=== PATIENT | male | born 1935 | race Caucasian/White ===

== ENCOUNTER 2016-12-03 16:38 | Emergency (ER) | payer BC, MEDICARE ==
[~2016-12-03] VITALS: Ht 172.7 cm; Wt 91.0 kg
[2016-12-03 16:40] VITALS: BP 169/81; PULSE 67; RESP 18; TEMP 97.8; O2SAT 96
[2016-12-03] MEDS ORDERED: SODIUM CHLORIDE 0.9% FLUSH 10 ML FLUSH IVF PRN (17:15)
[2016-12-03 17:19] VITALS: O2SAT 96
[2016-12-03 17:25] VITALS: BP 153/75; PULSE 68; RESP 20; O2SAT 97
[2016-12-03 17:35] LABS: AUTOMATED NEUTROPHIL # 4.7 TH/MM3 (1.8-7.7); BASOPHIL % 0.6 % (0.0-2.0); EOSINOPHIL # 0.5 TH/MM3 (0-0.4); EOSINOPHIL % 6.4 % (0.0-4.0); HEMATOCRIT 45.5 % (39.0-51.0); HEMO FLAGS DIFF FINAL; LYMPH % 18.6 % (9.0-44.0); LYMPHOCYTE # 1.3 TH/MM3 (1.0-4.8); MEAN CELL VOLUME 95.6 FL (80.0-100.0); MEAN CORPUSCULAR HEMOGLOBIN 31.7 PG (27.0-34.0); MEAN CORPUSCULAR HGB CONC 33.1 % (32.0-36.0); MONO % 8.1 % (0.0-8.0); NEUT % 66.3 % (16.0-70.0); PLATELET COUNT 213 TH/MM3 (150-450); RED BLOOD COUNT 4.76 MIL/MM3 (4.50-5.90); RED CELL DISTRIBUTION WIDTH 12.9 % (11.6-17.2); WHITE BLOOD COUNT 7.1 TH/MM3 (4.0-11.0)
[2016-12-03 17:36] LABS: GLUCOSE,URINE NEG (NEG); KETONE, URINE NEG (NEG); NITRITE,URINE NEG (NEG); PH, URINE 5.5 (5.0-8.5)
[2016-12-03 17:37] LABS: BLOOD, URINE TRACE (NEG); METHOD OF COLLECTION CLEAN CATCH; URINE COLOR YELLOW (YELLW/STRAW)
[2016-12-03 17:40] LABS: COMMENT (UR) CULT NOT INDICATED; CULTURE IF INDICATED CULT NOT INDICATED; RBC, URINE 0-3 /hpf (0-3); SQUAMOUS EPITHELIAL CELL URINE 0-5 /hpf (0-5); WBC, URINE 0-2 /hpf (0-5)
[2016-12-03 17:43] LABS: CHLORIDE 106 MEQ/L (98-107); POTASSIUM 3.5 MEQ/L (3.5-5.1); SODIUM (NA) 141 MEQ/L (136-145)
[2016-12-03 17:47] LABS: ANION GAP 8 MEQ/L (5-15); BICARBONATE 26.7 MEQ/L (21.0-32.0); BLOOD UREA NITROGEN 14 MG/DL (7-18); MAGNESIUM 2.4 MG/DL (1.5-2.5)
[2016-12-03 17:48] LABS: APTT (PATIENT) 25.9 SEC (24.3-30.1)
[2016-12-03 17:50] LABS: ALT (GPT) 27 U/L (12-78); AST (GOT) 13 U/L (15-37); GLOMERULAR FILTRATION RATE 80 ML/MIN (>89)
[2016-12-03 17:51] LABS: TOTAL BILIRUBIN ADULT 0.3 MG/DL (0.2-1.0)
[2016-12-03 17:53] LABS: ALCOHOL 39 MG/DL (0-5); ALKALINE PHOSPHATASE 76 U/L (45-117); CREATINE KINASE 81 U/L (39-308)
[2016-12-03 18:19] VITALS: BP 150/80; PULSE 74; RESP 18; O2SAT 100
[2016-12-03] MEDS ORDERED: LORA-392 PO (18:25)
--- NOTE | 2016-12-03 18:25 | PD ---
HPI Chief Complaint: General Weakness Time Seen by Provider: 18:05 Travel History International Travel<30 days: No Contact w/Intl Traveler<30days: No Traveled to known affect area: No History of Present Illness HPI Patient is an 81-year-old male presents emergency department for evaluation of generalized fatigue over the past few weeks is been gradually worsening. Patient states he doesn't think he is getting enough sleep at night and thinks is a problem. He denies any apneic periods waking up gasping for air. His states he does not snore. Patient states she's not seen another physician for this. Denies any chest pain shortness breath abdominal pain nausea vomiting diarrhea fevers waking weight loss. Has not seen a physician in some years. He states that he and his are here on vacation and did take a cruise today and he had had a few drinks today. PFSH Past Medical History ?: Not Social History Alcohol Use: Yes Tobacco Use: No Substance Use: No Allergies-Medications (Allergen,Severity, Reaction): Coded Allergies: No Known Allergies (Unverified , 12/03/16) Reported Meds & Prescriptions Reported Meds & Active Scripts Active Ativan (Lorazepam) 0.5 Mg Tab 0.5 Mg PO HS PRN Review of Systems Except as stated in HPI: all other systems reviewed are Neg Physical Exam Narrative GENERAL: [Well-developed well-nourished, no obvious distress, appears younger than stated age. SKIN: Focused skin assessment warm/dry. HEAD: Atraumatic. Normocephalic. EYES: Pupils equal and round. No scleral icterus. No injection or drainage. ENT: No nasal bleeding or discharge. Mucous membranes pink and moist. NECK: Trachea midline. No JVD. CARDIOVASCULAR: Regular rate and rhythm. No murmur appreciated. RESPIRATORY: No accessory muscle use. Clear to auscultation. Breath sounds equal bilaterally. GASTROINTESTINAL: Abdomen soft, non-tender, nondistended. Hepatic and splenic margins not palpable. MUSCULOSKELETAL: No obvious deformities. No clubbing. No cyanosis. No edema. NEUROLOGICAL: Awake and alert. No obvious cranial nerve deficits. Motor grossly within normal limits. Normal speech. PSYCHIATRIC: Appropriate mood and affect; insight and judgment normal. Data Data Last Documented VS Vital Signs Date Time Temp Pulse Resp B/P (MAP) Pulse Ox O2 Delivery O2 Flow Rate FiO2 12/03/16 18:32 12/03/16 18:19 74 18 100 12/03/16 16:40 97.8 Orders Orders Complete Blood Count With Diff (12/03/16 17:13) Comprehensive Metabolic Panel (12/03/16 17:13) Electrocardiogram (12/03/16 17:14) Prothrombin Time / Inr (Pt) (12/03/16 17:14) Act Partial Throm Time (Ptt) (12/03/16 17:14) Ecg Monitoring (12/03/16 17:14) Iv Access Insert/Monitor (12/03/16 17:14) Oximetry (12/03/16 17:14) Oxygen Administration (12/03/16 17:14) Sodium Chloride 0.9% Flush (Ns Flush) (12/03/16 17:15) Urinalysis - C+S If Indicated (12/03/16 17:18) Ckmb (Isoenzyme) Profile (12/03/16 17:13) Magnesium (Mg) (12/03/16 17:13) Troponin I (12/03/16 17:13) Alcohol (Ethanol) (12/03/16 17:13) Labs Laboratory Tests Test 12/03/16 17:15 12/03/16 17:20 White Blood Count 7.1 TH/MM3 Red Blood Count 4.76 MIL/MM3 Hemoglobin 15.1 GM/DL Hematocrit 45.5 % Mean Corpuscular Volume 95.6 FL Mean Corpuscular Hemoglobin 31.7 PG Mean Corpuscular Hemoglobin Concent 33.1 % Red Cell Distribution Width 12.9 % Platelet Count 213 TH/MM3 Mean Platelet Volume 7.3 FL Neutrophils (%) (Auto) 66.3 % Lymphocytes (%) (Auto) 18.6 % Monocytes (%) (Auto) 8.1 % Eosinophils (%) (Auto) 6.4 % Basophils (%) (Auto) 0.6 % Neutrophils # (Auto) 4.7 TH/MM3 Lymphocytes # (Auto) 1.3 TH/MM3 Monocytes # (Auto) 0.6 TH/MM3 Eosinophils # (Auto) 0.5 TH/MM3 Basophils # (Auto) 0.0 TH/MM3 CBC Comment DIFF FINAL Differential Comment Prothrombin Time 11.0 SEC Prothromb Time International Ratio 1.0 RATIO Activated Partial Thromboplast Time 25.9 SEC Blood Urea Nitrogen 14 MG/DL Creatinine 0.91 MG/DL Random Glucose 86 MG/DL Total Protein 6.7 GM/DL Albumin 3.6 GM/DL Calcium Level 8.3 MG/DL Magnesium Level 2.4 MG/DL Alkaline Phosphatase 76 U/L Aspartate Amino Transf (AST/SGOT) 13 U/L Alanine Aminotransferase (ALT/SGPT) 27 U/L Total Bilirubin 0.3 MG/DL Sodium Level 141 MEQ/L Potassium Level 3.5 MEQ/L Chloride Level 106 MEQ/L Carbon Dioxide Level 26.7 MEQ/L Anion Gap 8 MEQ/L Estimat Glomerular Filtration Rate 80 ML/MIN Total Creatine Kinase 81 U/L Troponin I LESS THAN 0.02 NG/ML Ethyl Alcohol Level 39 MG/DL Urine Collection Type CLEAN CATCH Urine Color YELLOW Urine Turbidity CLEAR Urine pH 5.5 Urine Specific [place] 1.022 Urine Protein TRACE mg/dL Urine Glucose (UA) NEG mg/dL Urine Ketones NEG mg/dL Urine Occult Blood TRACE Urine Nitrite NEG Urine Bilirubin NEG Urine Leukocyte Esterase NEG Urine RBC 0-3 /hpf Urine WBC 0-2 /hpf Urine Squamous Epithelial Cells 0-5 /hpf Microscopic Urinalysis Comment CULT NOT INDICATED MDM Medical Decision Making Medical Screen Exam Complete: Yes Emergency Medical Condition: Yes Differential Diagnosis Generalized fatigue, insomnia, sleep apnea, vitamin deficiency, anemia, pneumonia, Narrative Course Patient roomed in the emergency department, he has a completely reassuring physical exam and basic labs are reassuring. His on-call level is 39. HEENT his both looked much younger than stated age. He states that he thinks if he just had a good night sleep he would probably start to feel better. He forces negative. I discussed with him that sleeping pills other than melatonin which she is currently taking him Benadryl are habit forming. He verbalized understanding and states that he thinks he just would like to try one or 2 to see how he felt the next morning. Think is reasonable for him to have a very small trial lose sleep agent. Discussed with him that he needs to follow-up with a primary care physician and have a complete checkup. He states he will do this when he returns from vacation to home. Discussed signs symptoms that should prompt emergent revisit. Diagnosis Primary Impression: Fatigue Qualified Codes: R53.82 - Chronic fatigue, unspecified Additional Impression: Insomnia Qualified Codes: G47.00 - Insomnia, unspecified Med/Other Pt SpecificInfo: Prescription(s) given Scripts Lorazepam (Ativan) 0.5 Mg Tab 0.5 MG PO HS Y for SLEEP, #5 TAB 0 Refills Prov: Solis Aguero MD 12/03/16 Disposition: 01 DISCHARGE HOME Condition: Stable Solis Aguero MD Dec 03, 2016 18:25
--- NOTE | 2016-12-04 12:30 | EKG ---
Date Performed: 12/03/2016 Time Performed: 17:34:20 PTAGE: 81 years EKG: Sinus rhythm INFERIOR MYOCARDIAL INFARCTION ABNORMAL ECG NO PREVIOUS TRACING DOCTOR: Geovanni Irwin Interpretating Date/Time 12/04/2016 12:27:23
== END 2016-12-03 18:33 | disposition home or self-care (01) ==
LOC: PHED 16:38
DX: R53.83 Other fatigue (principal); G47.00 Insomnia, unspecified; Z79.899 Other long term (current) drug therapy; R94.31 Abnormal electrocardiogram [ECG] [EKG]
CPT/HCPCS: 80053; 80307; 81001; 82550; 83735; 84484; 85025; 85610; 85730; 93005; 99284